=== PATIENT | female | born 1965 | race Caucasian/White ===

== ENCOUNTER → 2018-12-21 | Outpatient (CLI) | payer BC ==
--- NOTE | 2018-12-21 14:46 | XR ---
EXAMINATION TYPE: XR cervical spine comp DATE OF EXAM: 12/21/2018 TECHNIQUE: Frontal, lateral, oblique, swimmers, and open mouth view of the cervical spine are obtaine d. HISTORY: M54.5 Low back pain . Neck pain. COMPARISON: None FINDINGS: The cervical spine is visualized in its entirety from C1 thru the top of T1 level, it is s atisfactory in alignment without evidence of acute fracture or dislocation. The pre-vertebral soft t issue appears within normal limits. The C1-C2 articulation is within normal limits on the open mouth view. Minimal multilevel uncovertebral hypertrophy is seen however the oblique images are felt to be within normal limits without significant radiographic neural foraminal narrowing. IMPRESSION: No acute fracture or dislocation is seen in the cervical spine. Minimal multilevel uncov ertebral hypertrophy without radiographic neural foraminal narrowing.
== END | disposition home or self-care (01) ==
LOC: RADXRMAIN 12:58
PROVIDERS: ATTEND Pediatrics
DX: M54.2 Cervicalgia (principal)
CPT/HCPCS: 72050

== ENCOUNTER → 2021-03-19 | Outpatient (CLI) | payer OTHER ==
--- NOTE | 2021-03-19 13:44 | US ---
EXAMINATION TYPE: US thyroid st tissue head/neck DATE OF EXAM: 03/19/2021 COMPARISON: NONE CLINICAL HISTORY: E05.90 Hypothyroidism. GLAND SIZE: Right Lobe: 4.8 x 1.4 x 2.0 cm Overall Parenchyma: homogenous Left Lobe: 3.2 x 1.2 x 1.0 cm Overall Parenchyma: homogeneous Isthmus Thickness: 0.6 cm NODULES RIGHT: # of nodules measured on right: 2 1. 0.6 X 0.5 x 0.3 cm, upper pole, spongiform, hypoechoic nodule, which is wider than tall, with s mooth margins, without echogenic foci. 2. 1.7 X 1.1 x 1.0 cm, lower pole, mixed cystic and solid, hypoechoic nodule, which is wider than t all, with smooth margins, with echogenic foci. LEFT: # of nodules measured on left: 0 ISTHMUS: # of nodules measured in the isthmus: 0 Bilateral neck scanned: superior to left thyroid a lymph node is imaged = 1.5 x 1.1 x 0.7cm. IMPRESSION: Mildly suspicious nodule inferior pole right thyroid lobe. Follow-up exam in one year is recommended. 2017 ACR TI-RADS LEVEL: TR-RADS 3 - Mildly Suspicious: Follow if > 1.5 cm, FNA if > 2.5 cm *Highest TI-RADS level nodule reported
== END | disposition home or self-care (01) ==
LOC: RADUSWWP 12:57
PROVIDERS: ATTEND Pediatrics
DX: E04.2 Nontoxic multinodular goiter (principal)
CPT/HCPCS: 76536; 84425

== ENCOUNTER → 2021-06-04 | Outpatient (CLI) | payer OTHER ==
--- NOTE | 2021-06-04 13:35 | CT ---
EXAMINATION TYPE: CT abdomen pelvis wo con DATE OF EXAM: 06/04/2021 COMPARISON: HISTORY: History of renal stones and UTI. Bilateral flank pain CT DLP: 666.60 mGycm Automated exposure control for dose reduction was used. TECHNIQUE: Helical acquisition of images was performed from the lung bases through the pelvis. FINDINGS: LUNG BASES: No significant abnormality is appreciated. LIVER/GB: No significant abnormality is appreciated. PANCREAS: No significant abnormality is seen. SPLEEN: No significant abnormality is seen. ADRENALS: No significant abnormality is seen. KIDNEYS: Moderate to severe right hydronephrosis with a 3 mm and 5 mm renal calculus. There is a larg er 1.9 cm renal pelvic calculus resulting in obstruction. No evidence of left-sided hydronephrosis or calculus. ADENOPATHY: None visualized. OSSEOUS STRUCTURES: Hypertrophic facet arthropathy noted. BOWEL: No significant abnormality is seen. OTHER: Aorta of normal caliber. Vascular phleboliths and vascular calcifications noted. IMPRESSION: 1. Moderate to severe right-sided hydroureter nephrosis secondary to 1.9 cm right UPJ calcification. Additional right-sided nephrolithiasis with cortical thickening correlate for medical renal disease o n the right.
== END | disposition home or self-care (01) ==
LOC: RADCTMAIN 13:02
PROVIDERS: ATTEND Pediatrics
DX: N13.2 Hydronephrosis with renal and ureteral calculous obstruction (principal)
CPT/HCPCS: 74176

== ENCOUNTER → 2021-07-02 | Outpatient (CLI) | payer OTHER ==
[2021-07-02 15:02] LABS: Basophils # (A) 0.1 k/uL (0-0.2); Basophils % (A) 1 %; Eosinophils # (A) 0.4 k/uL (0-0.7); Eosinophils % (A) 6 %; HGB 14.3 gm/dL (11.4-16.0); Lymphocytes % (A) 30 %; MCH 30.5 pg (25.0-35.0); MCHC 33.3 g/dL (31.0-37.0); MCV 91.5 fL (80.0-100.0); Monocytes # (A) 0.3 k/uL (0-1.0); Monocytes % (A) 4 %; Neutrophils # (A) 3.7 k/uL (1.3-7.7); Neutrophils % (A) 57 %; Platelet Count 166 k/uL (150-450); RDW 12.5 % (11.5-15.5); WBC 6.5 k/uL (3.8-10.6)
[2021-07-02 15:12] LABS: ALT 33 U/L (4-34); AST 32 U/L (14-36); African American GFR (CKD) >90 (>60 ml/min/1.73 sqM); Albumin 4.1 g/dL (3.5-5.0); Alkaline Phosphatase 68 U/L (38-126); Anion Gap 9 mmol/L; Appearance,Urine Clear (Clear); Bacteria,Urine Occasional /hpf; Bilirubin,Urine Negative (Negative); Blood Urea Nitrogen 12 mg/dL (7-17); Blood,Urine Negative (Negative); Calcium 9.5 mg/dL (8.4-10.2); Carbon Dioxide 30 mmol/L (22-30); Chloride 100 mmol/L (98-107); Color,Urine Light Yellow; Glucose 204 mg/dL (74-99); Glucose,Urine (UA) Negative (Negative); Ketones,Urine Negative (Negative); Leukocyte Esterase,Urine Moderate (Negative); Mucus,Urine Rare /hpf; Nitrite,Urine Negative (Negative); Non-African American GFR(CKD) >90 (>60 ml/min/1.73 sqM); Potassium 4.1 mmol/L (3.5-5.1); Protein,Urine Negative (Negative); RBC,Urine 3 /hpf (0-5); Sodium 139 mmol/L (137-145); Specific Gravity,Urine 1.012 (1.001-1.035); Squamous Epithelial Cell,Urine 1 /hpf (0-4); Total Bilirubin 1.2 mg/dL (0.2-1.3); Urobilinogen,Urine <2.0 mg/dL (<2.0); WBC,Urine 34 /hpf (0-5)
== END | disposition home or self-care (01) ==
LOC: LABPAT 13:38
PROVIDERS: ATTEND Urology
DX: Z01.812 Encounter for preprocedural laboratory examination (principal); N20.0 Calculus of kidney; E11.9 Type 2 diabetes mellitus without complications; R31.29 Other microscopic hematuria
CPT/HCPCS: 36415; 80053; 81001; 85025; 87086

== ENCOUNTER 2021-07-10 07:32 | Observation (INO) | payer OTHER ==
[2021-07-05 16:05] VITALS: BMI 34.0
--- NOTE | 2021-07-09 20:18 | P.GSHP ---
History of Present Illness H&P Date: 07/09/21 56 yo female with an obstructing 2cm right renalpelvic stone plus satellite rlp calyceal stones who comes for a pcnl right. the alternatives have been discussed. the risks and complications including infection bleeding failure to remove all the stone, damage to the kidney and adjacent organs among others have been explained understood and accepted. - Constitutional Constitutional: Denies chills, Denies fever - EENT Eyes: denies blurred vision, denies pain Ears, nose, mouth and throat: Denies headache, Denies sore throat - Cardiovascular Cardiovascular: Denies chest pain, Denies shortness of breath - Respiratory Respiratory: Denies cough, Denies 7 - Gastrointestinal Gastrointestinal: Denies abdominal pain, Denies diarrhea, Denies nausea, Denies vomiting - Genitourinary (Female) Genitourinary: Denies dysuria, Denies hematuria - Genitourinary (Male) Genitourinary: Denies dysuria, Denies hematuria - Musculoskeletal Musculoskeletal: Denies myalgias - Integumentary Integumentary: Denies pruritus, Denies rash - Neurological Neurological: Denies numbness, Denies weakness - Psychiatric Psychiatric: Denies anxiety, Denies depression - Endocrine Endocrine: Denies fatigue, Denies weight change Past Medical History Past Medical History: Diabetes Mellitus, Hypertension Additional Past Medical History / Comment(s): Kidney stones, History of Any Multi-Drug Resistant Organisms: None Reported Past Surgical History: Tubal Ligation Additional Past Surgical History / Comment(s): Uterine Ablation, Uterus removed. Bladder surgery, eye surgery. Past Anesthesia/Blood Transfusion Reactions: No Reported Reaction Past Psychological History: No Psychological Hx Reported Smoking Status: Never smoker Past Alcohol Use History: None Reported Past Drug Use History: None Reported - Past Family History Mother Family Medical History: No Reported History Medications and Allergies Home Medications Medication Instructions Recorded Confirmed Type metFORMIN HCL [Glucophage] 500 mg PO HS 07/26/15 07/08/21 History Hydrochlorothiazide 12.5 mg PO DAILY 07/05/21 07/08/21 History [hydroCHLOROthiazide] L.acidoph,Paracasei, B.lactis 1 each PO DAILY 07/05/21 07/08/21 History [Probiotic] Metoprolol Tartrate [Lopressor] 50 mg PO BID 07/05/21 07/08/21 History Semaglutide [Ozempic] 0.5 mg SQ Q7D 07/05/21 07/08/21 History Allergies Allergy/AdvReac Type Severity Reaction Status Date / Time glipizide Allergy Unknown Verified 07/05/21 15:44 acetaminophen [From [place]] AdvReac Unknown Verified 07/05/21 15:46 hydrocodone [From [place]] AdvReac Unknown Verified 07/05/21 15:46 Surgical - Exam - General well developed, well nourished, no distress - Eyes normal ocular movement, no icteric - ENT no hearing loss, no congestion - Neck no masses, trachea midline - Respiratory normal respiratory effort, clear to auscultation - Abdomen Abdomen: soft, non tender, no guarding, no rigid, no rebound - Integumentary no rash, no abnormal pigmentation - Neurologic no disoriented, no combative - Psychiatric oriented to time, oriented to person, oriented to place, speech is normal, memory intact Results - Imaging CT scan - abdomen: report reviewed, image reviewed CT scan - pelvis: report reviewed, image reviewed Assessment and Plan Assessment: Impression: Large right renal stones. Plan: Right pcnl.
[~2021-07-10 07:32] MED LIST: DEXAMETHASONE SOD PHOSPHATE 4 MG/ML 1 ML VIAL IV ONE; ONDANSETRON 4 MG/2 ML VIAL IVP ONE
--- NOTE | 2021-07-10 07:40 | XR ---
EXAMINATION TYPE: XR KUB DATE OF EXAM: 07/10/2021 Comparison: Correlation CT 06/04/2021 Clinical History: 56-year-old female right renal stones, N20.0 Findings: Redemonstrated right-sided renal calculi. Stones measure 6 mm and 3 mm. Large calculus measuring 1.9 cm is redemonstrated within the right renal pelvis. Nonobstructive bowel gas pattern. [id number] stool. Tiny pelvic phleboliths. Extra convex curvature lumbar spine with hypertrophic facet arthropathy in the lower lumbar spine. Impression: Right-sided nephrolithiasis with a large 1.9 cm calculus redemonstrated within the pelvis of the [facility] t renal collecting system.
[2021-07-10 08:49] LABS: Glucose,Whole Blood 214 mg/dL (75-99)
[2021-07-10] MEDS: LACTATED RINGERS 1,000 ML IV SCH ×2 (08:56→23:16)
[2021-07-10] MEDS ORDERED: SCOPOLAMINE 1.5MG/72HR PATCH TRANSDERM ONE (08:57)
[2021-07-10] MEDS ORDERED: SUCCINYLCHOLINE CHLORIDE 100 MG/5 ML SYR IV ONE (09:09)
[2021-07-10] MEDS ORDERED: PHENYLEPHRINE-0.9% NACL SYG 1,000 MCG/10 ML SYRINGE ONE (09:09)
[2021-07-10] MEDS ORDERED: ESMOLOL 100 MG/10 ML VIAL ONE (09:09)
[2021-07-10] MEDS ORDERED: NEOSTIGMINE 1 MG/ML 10 ML VIAL ONE (09:09)
[2021-07-10] MEDS ORDERED: fentaNYL (PF) 50 MCG/ML 2 ML AMP ONE (09:09)
[2021-07-10] MEDS ORDERED: MIDAZOLAM 2 MG/2 ML VIAL ONE (09:09)
[2021-07-10] MEDS ORDERED: LIDOCAINE 1% INJ 10MG/ML (20 ML MDV) ONE (09:09)
[2021-07-10] MEDS ORDERED: GLYCOPYRROLATE 0.2 MG/ML 2 ML VIAL ONE (09:09)
[2021-07-10] MEDS ORDERED: ROCURONIUM 10 MG/ML (5 ML VIAL) IV ONE (09:09)
[2021-07-10] MEDS ORDERED: PROPOFOL 10 MG/ML 20 ML VIAL IV ONE (09:09)
[2021-07-10] MEDS ORDERED: KETOROLAC 15 MG/ML 1 ML VIAL ONE (09:09)
[2021-07-10] MEDS: GENTAMICIN 100 MG in SODIUM CHLORIDE 0.9% 100 ML IVPB PRN ×2 (09:14→09:28)
[2021-07-10] MEDS: AMPICILLIN 1,000 MG in SODIUM CHLORIDE 0.9% 50 ML IVPB PRN ×2 (09:20→09:28)
[2021-07-10] MEDS ORDERED: LACTATED RINGERS 1,000 ML IV ONE (10:23)
[2021-07-10] MEDS ORDERED: ACETAMINOPHEN TAB 325 MG TAB PO PRN (10:59)
[2021-07-10] MEDS ORDERED: MAG HYDROX/AL HYDROX/SIMETH 30 ML CUP PO PRN (10:59)
[2021-07-10] MEDS ORDERED: HYDROmorphone PCA 10 MG/50 ML BAG IV PRN (11:01)
[2021-07-10] MEDS ORDERED: NALOXONE 0.4 MG/ML 1 ML VIAL IV PRN (11:01)
--- NOTE | 2021-07-10 11:07 | P.OP ---
Date of Procedure: 07/10/21 Preoperative Diagnosis: Infected right renal calculi, large (greater than 2 cm) Postoperative Diagnosis: Same Procedure(s) Performed: Cystoscopy, placement of ureteral catheter right, percutaneous nephrostomy (Dr. Kaiser) percutaneous nephrostolithotomy ultrasound and laser, placement of 10 J nephrostomy Anesthesia: DOUGLAS Surgeon: Alebr Zaragoza Estimated Blood Loss (ml): 50 Pathology: other (Stone) Condition: stable Disposition: PACU Indications for Procedure: The patient is 56. She had infected urine and was identified with a large right renal pelvic stone and a right lower pole calyceal stone greater than 2.5 cm in total volume she comes for percutaneous nephrostolithotomy she's been on antibiotics. Cultures negative Description of Procedure: Patient brought up and suite. Given general anesthesia on the transport gurney. Placed in a frog position with a sterile prep and drape. Cystoscopy Foroblique lens and 22-[place]izen [place] sheath identifies a normal urethra. The right ureteral orifice is identified and elevated with a 5-[place]izen [place] occluding balloon catheter. The balloon is insufflated in the UPJ. It is secured to a Bundy catheter. The patient's placed in a prone position. Dr. Kaiser of radiology performed right percutaneous nephrostomy to a middle pole calyx. I dilate the tract to 30-[place]izen [place]. The urine is somewhat cloudy and therefore is irrigated thoroughly. With the semirigid scope clot is removed and the stone was identified. The larger portion is broken and suction graft. A smaller fragment is on up into an upper pole calyx. I follow with the flexible nephroscopy tube. The stone was broken into smaller pieces basketed. I then I looked throughout the collecting system and gravity any other fragments. The 6-7 mm right lower pole calyceal stone was grasped and removed. Then the procedure the no remaining stone. A right 10 J nephrostomy tubes placed. The patient is awake and returned recovery room good condition. Blood loss is 50 mL. She tolerated procedure well be placed in the hospital postoperatively.
[2021-07-10 11:26] LABS: Glucose,Whole Blood 165 mg/dL (75-99)
[2021-07-10] MEDS ORDERED: LEVOFLOXACIN 500 MG TAB PO SCH (12:00)
--- NOTE | 2021-07-10 12:44 | FL ---
EXAMINATION TYPE: FL Perc Nephrostomy New Access DATE OF EXAM: 07/10/2021 COMPARISON: CT 06/04/2021 HISTORY: Hydronephrosis, right ureteral calculus. PROCEDURE: Maximal barrier technique was utilized, hand hygiene obtained with soap and water and alcohol-based h and rub. The skin overlying the right kidney was localized using fluoroscopy and the overlying skin prepped and draped. Skin bebeto was made with a scalpel. Access was gained under fluoroscopy, followin g placement of a ureteral occlusion balloon by the referring clinician and instillation of air in the renal collecting system with a 21-gauge needle to the right kidney midpole calyx. An 0.018 inch wire was advanced. The access site was dilated, access site was upsized, safety wire deployed and subseq uently a sheath was advanced into the renal pelvis following dilation with balloon along the tract. T he patient underwent nephrolithotomy by the referring clinician. The patient remained in stable con dition without complication. The patient was discharged to observation in the care of anesthesia. IMPRESSION: STATUS POST NEPHROSTOMY PLACEMENT FOR NEPHROLITHOTOMY WITH FLUOROSCOPIC GUIDANCE. THIS PROCEDURE PER FORMED BY THE UNDERSIGNED. 8 intraoperative C-arm images document the procedure, 2 minutes fluoroscop y time was utilized
[2021-07-10] MEDS ORDERED: SODIUM CHLORIDE 0.9% 1,000 ML IV ONE ×2 (13:00)
[2021-07-10] MEDS: HYDROmorphone 0.5 MG/0.5 ML SYRINGE IVP PRN ×4 (13:35→20:25)
[2021-07-10] MEDS ORDERED: ONDANSETRON 4 MG/2 ML VIAL IVP ONE (13:46)
[2021-07-10 14:24] VITALS: RESP 16
[2021-07-10 16:10] LABS: Glucose,Whole Blood 160 mg/dL (75-99)
[2021-07-10] MEDS ORDERED: BENZOCAINE/MENTHOL LOZENG 1 EACH LOZENGE MUCOUS MEM PRN (16:41)
[2021-07-10] MEDS ORDERED: HYDROmorphone 1 MG/ML 1 ML SYRINGE IVP PRN (16:42)
[2021-07-10] MEDS: SODIUM CHLORIDE 0.45% 1,000 ML IV SCH (16:59)
[2021-07-10] MEDS: ONDANSETRON 4 MG/2 ML VIAL IVP PRN (17:11)
[2021-07-10] MEDS: METOPROLOL TARTRATE 50 MG TAB PO SCH (20:24)
[2021-07-10 20:25] LABS: Glucose,Whole Blood 174 mg/dL (75-99)
[2021-07-10] MEDS ORDERED: metFORMIN 500 MG TAB PO SCH (21:00)
[2021-07-11] MEDS: HYDROmorphone 0.5 MG/0.5 ML SYRINGE IVP PRN ×2 (03:12→07:43)
[2021-07-11] MEDS: ONDANSETRON 4 MG/2 ML VIAL IVP PRN (03:12)
[2021-07-11] MEDS: SODIUM CHLORIDE 0.45% 1,000 ML IV SCH (03:40)
[2021-07-11 07:05] LABS: Glucose,Whole Blood 176 mg/dL (75-99)
[2021-07-11 07:43] VITALS: BP 118/68; PULSE 70; TEMP 97.8
[2021-07-11] MEDS: METOPROLOL TARTRATE 50 MG TAB PO SCH (08:24)
[2021-07-11] MEDS ORDERED: hydroCHLOROthiazide 12.5 MG CAP PO SCH (09:00)
--- NOTE | 2021-07-11 10:33 | P.DS ---
Providers Date of admission: 07/10/21 22:02 Expected date of discharge: 07/11/21 Attending physician: Alber Zaragoza Primary care physician: Sage Pridemley [facility] Course: On the day of admission, the patient underwent an uncomplicated right percutaneous nephrolithotomy. The perioperative course was unremarkable. She remained afebrile with stable vital signs. On the first postoperative day, she reported mild discomfort which was controlled. She denied nausea and vomiting. Both the nephrostomy tube and Bundy catheter were draining clear urine. Procedures: Right percutaneous nephrolithotomy on 07/10/2021. Patient Condition at Discharge: Good Plan - Discharge Summary Discharge Rx Participant: Yes New Discharge Prescriptions: New Ketorolac [Toradol] 10 mg PO Q6HR PRN #12 tab PRN Reason: Mild To Moderate Pain Acetaminophen-Codeine 300-30mg [Tylenol w/codeine #3] 1 - 2 tab PO Q4-6H PRN #6 tablet PRN Reason: Moderate To Severe Pain No Action metFORMIN HCL [Glucophage] 500 mg PO HS Metoprolol Tartrate [Lopressor] 50 mg PO BID Semaglutide [Ozempic] 0.5 mg SQ Q7D L.acidoph,Paracasei, B.lactis [Probiotic] 1 each PO DAILY Hydrochlorothiazide [hydroCHLOROthiazide] 12.5 mg PO DAILY Discharge Medication List metFORMIN HCL [Glucophage] 500 mg PO HS 07/26/15 [History] Hydrochlorothiazide [hydroCHLOROthiazide] 12.5 mg PO DAILY 07/05/21 [History] L.acidoph,Paracasei, B.lactis [Probiotic] 1 each PO DAILY 07/05/21 [History] Metoprolol Tartrate [Lopressor] 50 mg PO BID 07/05/21 [History] Semaglutide [Ozempic] 0.5 mg SQ Q7D 07/05/21 [History] Acetaminophen-Codeine 300-30mg [Tylenol w/codeine #3] 1 - 2 tab PO Q4-6H PRN #6 tablet 07/11/21 [Rx] Ketorolac [Toradol] 10 mg PO Q6HR PRN #12 tab 07/11/21 [Rx] Follow up Appointment(s)/Referral(s): Alber Zaragoza MD [STAFF PHYSICIAN] - 07/16/21 Activity/Diet/Wound Care/Special Instructions: Discharge home with right nephrostomy tube. Encourage oral fluids. Diet as tolerated. No strenuous activity. Discharge Disposition: HOME SELF-CARE
== END 2021-07-11 13:01 | disposition home or self-care (01) ==
LOC: OR 07:32 → 4FBP 10:53 → 5NMEDONC 12:06 → 4SSUR 15:05 → OR 22:02
PROVIDERS: ADMIT Urology; ATTEND Urology
DX: N20.0 Calculus of kidney (principal); E11.9 Type 2 diabetes mellitus without complications; I10 Essential (primary) hypertension; Z87.442 Personal history of urinary calculi; Z20.822 Contact with and (suspected) exposure to COVID-19; Z79.84 Long term (current) use of oral hypoglycemic drugs; Z79.899 Other long term (current) drug therapy; Z88.5 Allergy status to narcotic agent; Z88.8 Allergy status to other drugs, medicaments and biological substances
CPT/HCPCS: 86900; 86901; 86850; 88300; 87635; 50432; 74018; 50081; G0378 ×2; C1729 ×4; C1894; C1769; J2250; J2710; J2405 ×2; J2001; J3010; J1580; J0290; J1885; J2370; J0330; J2704; J1170 ×2

== ENCOUNTER → 2022-08-20 | Outpatient (CLI) | payer OTHER ==
--- NOTE | 2022-08-20 16:05 | XR ---
EXAMINATION TYPE: XR KUB DATE OF EXAM: 08/20/2022 3:57 PM INDICATION: Patient age:Female; 57 years old; Reason for study: N20.0; [facility]. COMPARISON: CT 06/04/2021. TECHNIQUE: One radiographic view of the abdomen was obtained. FINDINGS: Bilateral renal densities project over the kidneys measuring up to 5 mm on the right and 8 mm on the left. There is a nonobstructive bowel gas pattern. No evidence of acute fracture. Large laney culus seen on prior CT within the right renal pelvis is no longer visualized. IMPRESSION: 1. Bilateral renal calculi. 2. Nonobstructive bowel gas pattern.
== END | disposition home or self-care (01) ==
LOC: RADXRMAIN 15:40
PROVIDERS: ATTEND Urology
DX: N20.0 Calculus of kidney (principal)
CPT/HCPCS: 74018

== ENCOUNTER → 2022-12-09 | Outpatient (CLI) | payer OTHER ==
--- NOTE | 2022-12-09 17:41 | US ---
EXAMINATION TYPE: US thyroid st tissue head/neck DATE OF EXAM: 12/09/2022 COMPARISON: 03/19/2021 CLINICAL INDICATION: Female, 57 years old with history of E21.0 PRIMARY HYPERPARATHYROIDISM follow up to previous thyroid nodules GLAND SIZE: Right Lobe: 4.4 x 2.0 x 1.8 cm Overall Parenchyma: heterogenous Left Lobe: 4.3 x 1.3 x 1.2 cm Overall Parenchyma: homogeneous Isthmus Thickness: .3 cm NODULES RIGHT: # of nodules measured on right: 1 1. 1.5 X .8 x 1.6 cm, lower medial, solid or almost completely solid, hypoechoic TR 4 nodule, which is wider than tall, with smooth margins, without echogenic foci. Prior size: 1.7 x 1.0 x 1.1 cm 2. Second one seen on previous not seen on today's exam. LEFT: # of nodules measured on left: 0 ISTHMUS: # of nodules measured in the isthmus: 0 Bilateral neck scanned, no evidence of lymphadenopathy. IMPRESSION: Solitary 1.6 x 1.5 cm TR4 nodule on the right (versus 1.7 x 1.1 cm, previously). Not significantly ch anged. This can continue to be followed. The second nodule previously seen is not apparent on today's exam.
== END | disposition home or self-care (01) ==
LOC: RADUSWWP 13:57
PROVIDERS: ATTEND Pediatrics
DX: E04.1 Nontoxic single thyroid nodule (principal); E21.0 Primary hyperparathyroidism
CPT/HCPCS: 76536